=== PATIENT | male | born 1965 | race Caucasian/White ===

== ENCOUNTER 2018-02-22 13:45 | Emergency (ER) | payer SELFPAY ==
[~2018-02-22 13:45] MED LIST: Dexamethasone 20 MG/5 ML VIAL ONE; Glycopyrrolate 0.2 MG/ML 5 ML SYRINGE ONE; Lidocaine 1% PF 5 ML VIAL ONE; PROPOFOL 200 MG/20 ML VIAL ONE; Succinylcholine Chloride 20 MG/ML 10 ml SYRINGE FS ONE
--- NOTE | 2018-02-22 15:34 | CON ---
DATE OF CONSULTATION: 02/22/2018 GI ER CONSULTATION NOTE REASON FOR CONSULTATION: Esophageal foreign body. HISTORY OF PRESENT ILLNESS: Luis Carlos Tom is a 53-year-old man with a history of diabetes, obesity, hy perlipidemia, and diagnosis of GERD. He has never undergone EGD in the past. He does take Protonix 40 mg daily. He says about a year ago, he had an episode in which he felt food get stuck in the thro at. This lasted for several minutes, but he was eventually able to regurgitate it back up and it res olved without incident. He has some chronic intermittent heartburn symptoms which are pretty well co ntrolled, but now yesterday for dinner he was eating some roast beef and potatoes and he acutely felt food lodged in the throat. He feels this sensation in his neck. It has not abated since then, whic h has been almost 20 hours ago. He has not been able to regurgitate it back up. He has not been abl e to tolerate any food or liquids or even his own secretions. He has been spitting into a bag. Ther e is no shortness of breath associated with this. No other symptoms such as abdominal pain. He pres ented to the [facility]. Evidently, a CT scan of the neck there demonstrated a f oreign body in the esophagus and he was sent here for GI consultation. He is hemodynamically stable and afebrile. REVIEW OF SYSTEMS: Full review of systems including constitutional, head, eyes, ears, nose, throat, GI, , cardiovascular, respiratory, musculoskeletal, and neurologic systems is negative except as no teofilo in the HPI. PAST MEDICAL HISTORY: Diabetes, hyperlipidemia, hypertension, and GERD. ALLERGIES: No known drug allergies. OUTPATIENT MEDICATIONS: Metformin, glipizide, lisinopril, Protonix 40 mg daily, atorvastatin. SOCIAL HISTORY: He denies smoking or drug use. He does drink alcohol, probably 4-5 beers per day. FAMILY HISTORY: Noncontributory. PHYSICAL EXAMINATION: VITAL SIGNS: Blood pressure 152/87, pulse 79, 96% oxygen saturation on room air, temperature is 99.8 . GENERAL: A 53-year-old man lying in bed comfortably in no acute distress, occasionally spitting into a bag. SKIN: No jaundice, no rashes were palpable. EYES: No scleral icterus. Extraocular movements intact. ENT: Mucous membranes moist, no oral lesions. LYMPH: No submandibular or supraclavicular lymphadenopathy. THYROID: Nontender to palpation. HEART: Regular rate and rhythm. LUNGS: Clear to auscultation bilaterally. ABDOMEN: Soft and nontender to palpation. EXTREMITIES: No peripheral edema. VESSELS: Radial pulses 2+ bilaterally. NEUROLOGICAL: Cranial nerves II-XII intact bilaterally. No focal deficits. ASSESSMENT AND PLAN: Esophageal foreign body. The patient's history is consistent with esophageal f ood bolus impaction. This would have been at dinnertime last night which is about 20 hours ago. For eign body was evidently confirmed on CT scan at [facility]. We need to proceed with upper endoscopy u rgently this afternoon for foreign body extraction and assessment of the esophageal mucosa. We discu ssed possibilities that would include peptic stricture or Schatzki's ring or possibly neoplastic proc ess. Further recommendations following endoscopy, I anticipate he will be able to be discharged home after the procedure.
--- NOTE | 2018-02-22 20:48 | OP ---
DATE OF PROCEDURE: 02/22/2018 SURGEON: Tano Bruno MD SIGNAL TIMER SURGEON: None. PROCEDURE: Esophagogastroduodenoscopy with foreign body removal and biopsies. INDICATION: Esophageal foreign body. MEDICATIONS: See anesthesia record. FINDINGS: After discussion of the risks, benefits and alternatives of the procedure, informed consen t was obtained and witnessed. Pre-endoscopic cardiopulmonary examination was satisfactory. Timeout was performed before sedation was achieved. Sedation was achieved with Anesthesia assistance in the endoscopy unit. A Pentax adult upper endoscope was placed into the oropharynx and passed through the cricopharyngeus under direct visualization. In the proximal esophagus at a distance of only 22 cm, there is a large impacted chunk of meat representing the roast beef the patient had yesterday. This was quite severely impacted and large in size. There was extensive maceration around the edges of th is impaction. Extraction was quite difficult. We used multiple modalities to try to extract it. At tempts to pass the Felix Net or wires and snare loop around the meat impaction were unsuccessful. We tried to use the 4 pronged graspers, which also was unsuccessful. We ended up having to tediously re move small pieces with a rat tooth forceps because the meat was so tender and kept shredding. We wer e only able to remove a very tiny amount of meat at a time. The procedure lasted for well over an ho ur. In the end, we were finally able to debulk the food bolus enough for it to slide easily beyond t he stricture and down into the stomach. At this point, a better examination of the esophagus could b e made. There is an edematous macerated fibrotic area from 22-25 cm from the incisors. This has the appearance of possible eosinophilic esophagitis. It did not appear malignant. Biopsies were obtain ed from the midesophagus for histology. The distal esophagus from 25-40 cm also had some subtle hayden ges suggestive of possible eosinophilic esophagitis, but no significant stricture or narrowing in the distal esophagus. The endoscope was passed down beyond the GE junction and into the stomach. Forwa rd and retroflexed views of the entire gastric mucosa were obtained. The gastric mucosa appeared nor mal. There are multiple large fundic gland polyps. The endoscope was advanced through the pylorus a nd into the first and second portions of the duodenum, which appeared normal. The upper endoscope wa s completely withdrawn and the patient allowed to recover. The patient tolerated the procedure well. There were no immediate post-procedure complications. IMPRESSION: 1. Large meat impaction in the proximal esophagus at 22 cm. Difficult extraction. 2. Severe maceration edema and fibrosis in the proximal esophagus at 22-25 cm suggestive of possible eosinophilic esophagitis. Biopsied. 3. Multiple large fundic gland polyps. 4. Otherwise, normal esophagogastroduodenoscopy. RECOMMENDATIONS: 1. Liquid diet tonight, advance cautiously to mechanical soft diet tomorrow. 2. Chew food thoroughly. 3. Stop all alcohol intake. 4. Twice daily oral proton pump inhibitor. We will have the patient increase his Protonix to twice a day. 5. Follow up results of esophageal biopsies. 6. Plan to repeat EGD in about 3 weeks for esophageal dilation.
== END 2018-02-22 18:40 | disposition admitted as inpatient to this hospital (09) ==
LOC: ERS 13:45
DX: T18.128A Food in esophagus causing other injury, initial encounter (principal); E11.9 Type 2 diabetes mellitus without complications
CPT/HCPCS: 88305; 88312; 88313; 99285; J1100; J2001; J2704